=== PATIENT | female | born 1950 | race Caucasian/White ===

== ENCOUNTER 2016-11-12 11:03 | Emergency (ER) | payer MEDICARE, OTHER ==
[~2016-11-12] VITALS: Ht 167.6 cm; Wt 72.6 kg
--- NOTE | ~2016-11-12 | EKG ---
PATIENT: CAREN DUNHAM UNIT #: [id number] Ventricular Rate: 76 BPM Atrial Rate: 76 BPM P-R Interval: 158 ms QRS Duration: 86 ms Q-T Interval: 356 ms QTC Calculation(Bezet): 400 ms P Sharon: 104 degrees Calculated R Sharon: 22 degrees Calculated T Sharon: 50 degrees Diagnosis Line: Normal sinus rhythm Diagnosis Line: Normal ECG Diagnosis Line: When compared with ECG of 02-SEP-2015 11:19, Diagnosis Line: No significant change was found Diagnosis Line: Confirmed by MATY VAUGHN MD ([id number]) on Diagnosis Line: 11/15/2016 10:46:57 AM INTERPRETING MD: JOHANA KAISER
--- NOTE | ~2016-11-12 | CR63 ---
[facility] A Service of [facility] RADIOLOGY TEXT RESULTS PATIENT: CAREN DUNHAM LOCATION: [facility] : 46 UNIT #: [id number] AGE: [address]: Brenda Cortes SEX: F ORDER DR: [id number] [facility] [address]. [place], [place] [address] [id number] E MR#: [id number] Acc #: [id number] NAME: CAREN DUNHAM. : 1950 SEX: F STUDY DATE/TIME: 11/12/2016 14:35 UNIT: [facility] ROOM: STUDY DESCRIPTION: CR Chest 2 View Attending Physician: Brenda Cortes Pa-C Ordering Physician: Ed Ervin Garcia M.D. Primary Care Physician: Rajni Carrion M.D. MEDICAL IMAGING REPORT This report is preliminary unless electronic signature is present EXAM Two-view chest, 11/12/2016. HISTORY 66-year-old female with chest pain and shortness of air for 3 days. COMPARISON Chest, 06/07/2015. FINDINGS Two views of the chest demonstrate clear lungs. No pleural effusion or pneumothorax. Heart size and mediastinum are normal. Pulmonary vasculature normal. IMPRESSION No acute cardiopulmonary findings. Dictated by... Dawson Contreras M.D. THIS IS AN ELECTRONICALLY VERIFIED REPORT Dawson Contreras M.D. at 11/13/2016 3:11 PM EMILY/sugey TD: 11/12/2016 23:59 JOB #: [id number] MEDICAL IMAGING REPORT Page 1 of 1 COPY
--- NOTE | ~2016-11-12 | CR58 ---
[facility] A Service of [facility] RADIOLOGY TEXT RESULTS PATIENT: CAREN DUNHAM LOCATION: [facility] : 48 UNIT #: [id number] AGE: [address]: Brenda Cortes SEX: F ORDER DR: [id number] [place], [place] [address] [id number] E MR#: [id number] Acc #: [id number] NAME: CAREN DUNHAM. : 1950 SEX: F STUDY DATE/TIME: 11/12/2016 14:34 UNIT: [facility] ROOM: STUDY DESCRIPTION: CR Cervical Spine 2 or 3 Views Attending Physician: Brenda Cortes Pa-C Ordering Physician: Ed Ervin Garcia M.D. Primary Care Physician: Rajni Carrion M.D. MEDICAL IMAGING REPORT This report is preliminary unless electronic signature is present EXAM Cervical spine, 11/12/2016 HISTORY 66-year-old female with neck pain beginning 3 days ago. No specific injury. COMPARISON CT cervical spine 10/05/2008 FINDINGS 3 views of the cervical spine demonstrate postsurgical changes at C3-4, C4-5, and C5-6. No evidence of hardware complication. No acute fracture or subluxation. Vertebral body heights and alignment are normally maintained. Prevertebral soft tissues are normal. Atlantoaxial relationship is normal. Cervicothoracic junction is unremarkable. Mild degenerative disc changes at C6-7. Mild multilevel facet degeneration. IMPRESSION 1. No acute cervical spine injury. Stable postsurgical changes from C3-C6. 2. Mild discogenic degenerative change C6-7. 3. Mild multilevel facet degeneration. Dictated by... Dawson Contreras M.D. THIS IS AN ELECTRONICALLY VERIFIED REPORT Dawson Contreras M.D. at 11/13/2016 3:11 PM EMILY/naina [facility] A Service of [facility] RADIOLOGY TEXT RESULTS PATIENT: CAREN DUNHAM LOCATION: [facility] : 48 UNIT #: [id number] AGE: [address]: Brenda Cortes SEX: F ORDER DR: TD: 11/12/2016 23:54 JOB #: [id number] MEDICAL IMAGING REPORT Page 1 of 1 COPY
[~2016-11-12 11:03] MED LIST: ALBUTEROL17 GM INH; ALLEGRA PO; ALLI PO; ATELVIA35 MG PO; BACTROBAN OINTMENT TOP; CLEOCIN PO; DALIRESP500 MCG PO; DILTIAZEM 24HR120 MG PO; ELIQUIS5 MG PO; FEXOFENADINE PO; FLOVENT HFA12 GM INH; FORADIL12 MCG INH; HYDROCODON-ACE1 EAC5 PO; HYDROCODON-ACE1 EAC7 PO; KLOR-CON PO; LASIX PO; LASIX20 MG PO; MONTELUKAST SOD10 MG PO; MULTIVITAMIN W-1 TAB PO; OTEZLA30 MG PO; PANTOPRAZOLE SO40 MG PO; PEPCID AC20 M2 PO; POTASSIUM PO; PREDNISONE PO; PROTONIX PO; SINGULAIR PO; SPIRIVA18 MCG INH; SYMBICORT INH; SYNTHROID PO; TOPAMAX50 MG PO; TOPIRAMATE25 MG PO; VITAMIN D2 PO; VITAMIN D250000 UNIT PO
[2016-11-12 14:05] LABS: BASOPHIL# 0.1 X10e3 (0-0.3); DIFF IND NO; EOSINOPHIL# 0.1 X10e3 (0-0.7); HEMATOCRIT 37.7 % (35.0-45.0); HEMOGLOBIN 12.6 gm/dL (12.0-16.0); LYMPHOCYTE# 1.7 X10e3 (1.0-3.5); LYMPHOCYTE% 21.9 % (17.0-45.0); MEAN CORPUSCULAR HEMOGLOBIN 27.7 PG (28-34); MEAN CORPUSCULAR HGB CONC 33.3 g/dL (30-36); MEAN PLATELET VOLUME 6.7 FL (6.5-11.5); MONOCYTE# 0.5 X10e3 (0-1.0); MONOCYTE% 7.2 % (3.0-12.0); NEUTROPHIL# 5.2 X10e3 (1.5-7.1); NEUTROPHIL% 68.9 % (40-75); PLATELET COUNT 370 X10e3 (140-420); RED BLOOD COUNT 4.54 X10e (3.90-5.30); RED CELL DISTRIBUTION WIDTH 15.2 % (11.0-15.5); WHITE BLOOD COUNT 7.5 X10e3 (4.0-10.5)
[2016-11-12 14:22] LABS: POC - CKMB 4.8 ng/mL (0.0-7.9); POC - TROPONIN <0.05 ng/mL (<=0.05)
[2016-11-12 14:32] LABS: ALBUMIN SERUM 3.9 g/dL (3.5-5.0); BILIRUBIN,TOTAL 0.4 mg/dL (0.2-2.0); CALCIUM SERUM 9.1 mg/dL (8.4-10.2); CREATININE SERUM 0.9 mg/dL (0.6-1.4); GLOM FILT RATE Estimated 65.7 mL/min (>60); POTASSIUM 3.8 mmol/L (3.5-5.1); PROTEIN TOTAL SERUM 6.8 g/dL (6.0-8.3)
== END 2016-11-12 15:55 | disposition home or self-care (01) ==
LOC: CFTX 11:03 → CED 11:03 → CFTX 13:35
PROVIDERS: Physician Assistant
DX: M25.512 Pain in left shoulder (principal); I10 Essential (primary) hypertension; I48.91 Unspecified atrial fibrillation; Z88.0 Allergy status to penicillin; Z88.2 Allergy status to sulfonamides; Z88.5 Allergy status to narcotic agent
CPT/HCPCS: 36415; 71020; 72040; 80053; 82553; 84484; 85025; 93005; 99284